=== PATIENT | female | born 1955 | race Caucasian/White ===

== ENCOUNTER → 2018-04-10 12:17 | Outpatient (CLI) | payer MEDICARE, SELFPAY ==
--- NOTE | 2018-04-10 | DI.MG.S_ITS ---
BILATERAL DIGITAL SCREENING MAMMOGRAM 3D/2D WITH CAD: 04/10/2018 CLINICAL: Routine screening. Comparison is made to exams dated: 03/15/2016 mammogram, 06/29/2014 mammogram, and 06/18/2014 mammogram - [facility]. There are scattered fibroglandular elements in both breasts. Current study was also evaluated with a Computer Aided Detection (CAD) system. No significant masses, calcifications, or other findings are seen in either breast. There has been no significant interval change. IMPRESSION: NEGATIVE There is no mammographic evidence of malignancy. A 1 year screening mammogram is recommended. This exam was interpreted at Station ID: [id number]. NOTE: For mammograms, a report in lay terms will be sent to the patient. Approximately 15% of breast malignancies will not be visualized mammographically. In the management of a palpable breast mass, a negative mammogram must not discourage biopsy of a clinically suspicious lesion. Electronically Signed By: Faith merritt/oliver:04/10/2018 17:30:34 letter sent: Normal Exam ACR BI-RADS Category 1: Negative [id number]
== END ==
PROVIDERS: Family Provider Nurse Practitioner Family; PCP Nurse Practitioner Family; Visit Provider Nurse Practitioner Family
DX: Z12.31 Encounter for screening mammogram for malignant neoplasm of breast (principal)
CPT/HCPCS: 77063; 77067

== ENCOUNTER → 2018-05-02 12:57 | Outpatient (CLI) | payer MEDICARE, SELFPAY ==
--- NOTE | 2018-05-02 | DI.US.S_ITS ---
PROCEDURE: US THYROID INDICATIONS: THYROID NODULE, MENOPAUSAL TECHNIQUE: Real-time scanning was performed of the thyroid gland, with image documentation. COMPARISON: Located Within [facility], US, THYROID, 08/09/2016, 11:24. FINDINGS: Right: Thyroid lobe measures 4.2 x 1.9 x 2.1 cm, and is homogeneous in echotexture. Left: Thyroid lobe measures 3.4 x 1.1 x 1.1 cm, and is homogenous in echotexture. Isthmus: 3.0 mm thick. Nodule number: 1 Location: Right mid Size: Unchange at 2.2 x 1.6 x 1.3 cm. Composition: Solid Echogenicity: Isoechoic Shape: wider than tall. Margins: Smooth Echogenic foci: Internal echogenic punctate foci Total points: 6 ACR TI-RADS category: Moderately suspicious Nodule number: 2 Location: Left superior Size: Unchange of 0.4 x 0.4 x 0.4 cm. Composition: Solid Echogenicity: Isoechoic Shape: wider than tall. Margins: Smooth Echogenic foci: None Total points: 3 ACR TI-RADS category: Mildly suspicious IMPRESSION: No significant interval change in appearance and size of moderately suspicious right thyroid nodule. By history, the nodule has been biopsied 3 different times with indeterminate results. If indicated, sonographically directed rebiopsy could be performed with pathology on site to evaluate the specimen at the time of biopsy. Otherwise continued followup as below. ACR TI-RADS definitions and recommendations: TI-RADS 1 (benign): 0 points. FNA not needed. TI-RADS 2 (not suspicious): 2 points. FNA not needed. TI-RADS 3 (mildly suspicious): 3 points. * FNA if 2.5 cm or larger, follow up if 1.5 cm or larger (at 1, 3, and 5 years). TI-RADS 4 (moderately suspicious): 4-6 points. * FNA if 1.5 cm or larger, follow up if 1 cm or larger (at 1, 2, 3, and 5 years). TI-RADS 5 (highly suspicious): 7 points or more. * FNA if 1 cm or larger, follow up if 0.5 cm or larger (every year for 5 years). Dictated by: Benton VALLES Interpreted: Sarai Corrigan MD on 05/02/2018 at 14:04 Approved by: Sarai Corrigan M.D. on 05/03/2018 at 9:46
== END ==
PROVIDERS: PCP Nurse Practitioner Family; Visit Provider Nurse Practitioner Family
DX: E04.2 Nontoxic multinodular goiter (principal); M81.0 Age-related osteoporosis without current pathological fracture; Z78.0 Asymptomatic menopausal state; Z90.722 Acquired absence of ovaries, bilateral; Z87.891 Personal history of nicotine dependence
CPT/HCPCS: 76536; 77080

== ENCOUNTER → 2018-05-13 12:50 | Outpatient (CLI) | payer MEDICARE, SELFPAY ==
--- NOTE | 2018-05-13 12:52 | DI.CT.S_ITS ---
PROCEDURE: CT SINUS SCREEN WO CON INDICATIONS: NIGHT SWEATS SINUSITIS TECHNIQUE: Noncontrast 3.0 mm axial images acquired from the frontal sinuses to the mid-sella, with coronal and sagittal reformats. For radiation dose reduction, the following was used: automated exposure control, adjustment of mA and/or kV according to patient size. COMPARISON: None. FINDINGS: Image quality: Excellent. Maxillary Sinuses: No bony remodeling or destruction. Mild right maxillary sinus because of thickening. There is moderate left maxillary sinus mucosal thickening. Ethmoid Air Cells: No bony remodeling or destruction. Mild mucosal thickening within the left anterior, and right posterior ethmoid air cells.. Sphenoid Sinuses: No bony remodeling or destruction. Moderate mucosal thickening within the right sphenoid sinus. Frontal Sinuses: No bony remodeling or destruction. Mild left frontal sinus because of thickening. Right frontal sinus is clear. Ostiomeatal Complexes: Right ostiomeatal unit is opacified. There is near-complete opacification of the left estimated lesion.. No Gómez cells. Miscellaneous: Visualized intra-orbital contents are normal. No hazel bullosa or paradoxical turbinate curvature. Moderate rightward nasal septal deviation. IMPRESSION: 1. Mckeon sinus mucosal disease. 2. Rightward nasal septum deviation. 3. Right greater than left ostiomeatal unit opacification. Dictated by: Makeda Salmeron M.D. on 05/13/2018 at 16:56 Approved by: Makeda Salmeron M.D. on 05/13/2018 at 16:58
--- NOTE | 2018-05-13 12:56 | DI.CT.S_ITS ---
PROCEDURE: CT CHEST WO CON INDICATIONS: NIGHT SWEATS SINUSITIS TECHNIQUE: Noncontrast 5 mm thick sections acquired from the pulmonary apices to the posterior costophrenic angles. 7 mm thick coronal and sagittal MIP reformats were then acquired. For radiation dose reduction, the following was used: automated exposure control, adjustment of mA and/or kV according to patient size. COMPARISON: [facility], , THYROID, 05/02/2018, 13:42. FINDINGS: Image quality: Excellent. Lungs and pleura: No acute consolidation. No pleural effusions or pneumothorax. Central and peripheral airways are patent and normal in caliber. Mediastinum: Heart size is normal. Trace pericardial effusion. No mediastinal adenopathy by size criteria. Thoracic aorta and central pulmonary arteries are normal in size. Esophagus is normal in caliber. No hiatal hernia. Bones and chest wall: No suspicious bony lesions. No vertebral body compression fractures. No axillary or supraclavicular adenopathy by size criteria. Thyroid gland contains a low-attenuation nodule measuring approximately 5 cm in the right lobe on image one, incompletely visualized and please see recent ultrasound report from 05/02/18 Abdomen: Visualized upper abdominal solid organs and bowel loops appear normal in the absence of contrast. IMPRESSION: Clear lungs. No mediastinal or hilar adenopathy. Trace pericardial effusion. Dictated by: Seymour Julien M.D. on 05/13/2018 at 17:48 Approved by: Seymour Julien M.D. on 05/13/2018 at 17:53
== END ==
PROVIDERS: PCP Nurse Practitioner Family; Visit Provider Internal Medicine Critical Care Medicine
DX: J32.4 Chronic pansinusitis (principal); J34.2 Deviated nasal septum
CPT/HCPCS: 70486; 71250

== ENCOUNTER → 2019-03-06 11:32 | Outpatient (CLI) | payer OTHER, SELFPAY ==
--- NOTE | 2019-03-06 | DI.RAD.S_ITS ---
PROCEDURE: XR CHEST 2V INDICATIONS: CHEST XR/ DYSPNEA TECHNIQUE: 2 views of the chest were acquired. [facility] 10[facility]17[facility], 06/05/2016, 9:06. FINDINGS: Surgical changes and devices: None. Lungs and pleura: Lungs are clear. No pleural effusions or pneumothorax. Mediastinum: Mediastinal contours are normal. Heart size is normal. Bones and chest wall: No suspicious bony abnormalities. Soft tissues appear unremarkable. IMPRESSION: Large lung volumes, flattening of the diaphragms on the lateral view, suspect COPD versus aggressive inspiratory effort. Dictated by: Lucio Burks M.D. on 03/06/2019 at 14:10 Approved by: Lucio Burks M.D. on 03/06/2019 at 14:10
== END ==
PROVIDERS: Family Provider Internal Medicine Critical Care Medicine; PCP Nurse Practitioner Family; Visit Provider Internal Medicine Critical Care Medicine
DX: R06.00 Dyspnea, unspecified (principal)
CPT/HCPCS: 71046

== ENCOUNTER → 2020-04-09 08:36 | Outpatient (CLI) | payer OTHER, SELFPAY ==
--- NOTE | 2020-04-09 | DI.MG.S_ITS ---
BILATERAL DIGITAL SCREENING MAMMOGRAM 3D/2D WITH CAD: 04/09/2020 CLINICAL: Routine screening. Comparison is made to exams dated: 04/10/2018 mammogram, 03/15/2016 mammogram, and 06/18/2014 mammogram - [facility]. There are scattered fibroglandular elements in both breasts. Current study was also evaluated with a Computer Aided Detection (CAD) system. There is a benign calcification in the right breast. There is a mole marker on the left breast. No significant masses, calcifications, or other findings are seen in either breast. There has been no significant interval change. IMPRESSION: BENIGN There is no mammographic evidence of malignancy. A 1 year screening mammogram is recommended. This exam was interpreted at Station ID: [id number]. NOTE: For mammograms, a report in lay terms will be sent to the patient. Approximately 15% of breast malignancies will not be visualized mammographically. In the management of a palpable breast mass, a negative mammogram must not discourage biopsy of a clinically suspicious lesion. Electronically Signed By: Tarik hill/oliver:04/10/2020 18:01:18 letter sent: Normal Exam ACR BI-RADS Category 2: Benign Finding(s) 3342F
== END ==
PROVIDERS: Family Provider Internal Medicine Critical Care Medicine; PCP Internal Medicine; Referring Provider Internal Medicine; Visit Provider Internal Medicine
DX: Z12.31 Encounter for screening mammogram for malignant neoplasm of breast (principal)
CPT/HCPCS: 77063; 77067

== ENCOUNTER → 2020-05-09 13:33 | Outpatient (CLI) | payer OTHER, SELFPAY | PROVIDERS: Family Provider Internal Medicine Critical Care Medicine; PCP Internal Medicine; Referring Provider Internal Medicine; Visit Provider Internal Medicine | DX: M81.0 Age-related osteoporosis without current pathological fracture (principal); Z78.0 Asymptomatic menopausal state; Z90.722 Acquired absence of ovaries, bilateral; Z87.891 Personal history of nicotine dependence | CPT/HCPCS: 77080 ==

== ENCOUNTER 2020-05-19 23:13 | Emergency (ER) | payer OTHER, SELFPAY ==
[2020-05-19 23:15] VITALS: BP 187/104; PULSE 102; RESP 25; TEMP 37; O2SAT 98
[2020-05-19 23:17] VITALS: BP 187/104; PULSE 106; O2SAT 96
--- NOTE | 2020-05-19 23:18 | ED_ITS ---
HPI - General Adult General Chief complaint: Shortness of Breath/Dyspnea Stated complaint: SOB Time Seen by Provider: 05/19/20 23:15 Source: patient and EMS Mode of arrival: EMS Limitations: no limitations History of Present Illness HPI narrative: Patient is a 65-year-old female. History of asthma and COPD who states that for the past couple days she has had some increasing shortness of breath. Has been using her albuterol inhaler and her nebulizer at home. Earlier this evening her symptoms worsened and her nebulizer treatment did not seem to be helping so she called EMS. Patient received no nebulizers by EMS in route secondary to the COVID-19 pandemic. Related Data Home Medications Medication Instructions Recorded Confirmed budesonide #0 07/30/17 Previous Rx's Medication Instructions Recorded ipratropium-albuterol 3 ml INHALATION Q20M PRN #90 ml 05/20/20 Allergies Allergy/AdvReac Type Severity Reaction Status Date / Time doxycycline Allergy Verified 05/19/20 23:23 Review of Systems Constitutional Constitutional: Denies fever(s) and Denies headache(s) ENT Ears, Nose, Mouth, and Throat: Denies headache(s) Cardiovascular Cardiovascular: Denies chest pain and Reports dyspnea Respiratory Respiratory: Reports cough and Reports dyspnea Gastrointestinal Gastrointestinal: Denies abdominal pain, Denies nausea and Denies vomiting Genitourinary Genitourinary: Denies dysuria Genitourinary: Denies dysuria Musculoskeletal Musculoskeletal: Denies arthralgias and Denies myalgias Integumentary/Breasts Skin/Breast: Denies rash Neurologic Neurologic: Denies behavioral changes and Denies headache(s) Psychiatric Psychiatric: Denies behavioral changes Hematologic/Lymphatic Hematologic/Lymphatic: Denies easy bleeding and Denies easy bruising Allergic/Immunologic Allergic/Immunologic: Denies urticaria Patient History Medical History Asthma COPD (chronic obstructive pulmonary disease) Social History Smoking Status: Former smoker Exam Initial Vital Signs Initial Vital Signs: Vital Signs Temperature 98.6 F 05/19/20 23:15 Pulse Rate 102 H 05/19/20 23:15 Respiratory Rate 25 H 05/19/20 23:15 Blood Pressure 187/104 H 05/19/20 23:15 Pulse Oximetry 98 05/19/20 23:15 Const General: ill appearing Limitations: mental status not altered HENMD Head: normal to inspection and normocephalic Resp Effort & Inspection: audible wheezes, cough, labored, nasal flaring and tac hypneic Auscultation: rhonchi and wheezes Cardio Rate: tachycardic Skin Lesions: no lesions Rashes: no rashes Neuro General: patient alert and patient awake Cognition: normal cognition Extrem General: capillary refill normal Psych Appearance: grossly normal and well kempt Course Orders Ordered: ED Orders 05/19/20 23:10 Complete Blood Count AUTO DIFF Stat Lipase Stat NT-proBNP (BNP-Adult 18+) Stat Troponin & CK Cardiac Panel Stat 05/19/20 23:15 COVID19 Stat EKG-12 Lead Stat RT Consult Eval and Treat Now 05/19/20 23:26 XR chest 1V Stat 05/20/20 00:13 Basic Metabolic Panel Stat Discontinued Medications Albuterol (Albuterol Hfa Mdi 60 Puff/8 Gm Inhaler) 4 puff INH NOW ONE Stop: 05/19/20 23:18 Last Admin: 05/19/20 23:24 Dose: 4 puff Documented by: DARION Albuterol/Ipratropium (Albuterol/Ipratropium 3 Ml Ampul) 3 ml INH NOW ONE Stop: 05/19/20 23:50 Last Admin: 05/19/20 23:59 Dose: 3 ml Documented by: DARION Albuterol/Ipratropium (Albuterol/Ipratropium 3 Ml Ampul) 3 ml INH NOW ONE Stop: 05/20/20 00:19 Last Admin: 05/20/20 00:22 Dose: 3 ml Documented by: DARION Methylprednisolone (Methylprednisolone 125 Mg/2 Ml Vial) 125 mg IV NOW ONE Stop: 05/19/20 23:18 Last Admin: 05/19/20 23:22 Dose: 125 mg Documented by: GILBERT Prednisone (Prednisone 20 Mg Prepack) 1 bottle MISC SEEINSTR ONE Stop: 05/20/20 01:38 Last Admin: 05/20/20 01:44 Dose: 1 bottle Documented by: GILBERT Vital Signs Vital signs: Vital Signs - 8 hr 05/19/20 23:15 05/19/20 23:17 05/19/20 23:24 Temperature 98.6 F Pulse Rate 102 H 106 H 100 H Respiratory Rate 25 H 28 H Blood Pressure 187/104 H 187/104 H Pulse Oximetry 98 96 97 05/19/20 23:30 05/19/20 23:59 05/20/20 00:00 Temperature Pulse Rate 102 H 105 H 97 H Respiratory Rate 22 18 Blood Pressure Pulse Oximetry 98 98 96 05/20/20 00:23 05/20/20 00:30 05/20/20 00:48 Temperature Pulse Rate 98 H 101 H 103 H Respiratory Rate 18 25 H 17 Blood Pressure Pulse Oximetry 96 94 94 05/20/20 00:49 Temperature Pulse Rate Respiratory Rate Blood Pressure 135/75 Pulse Oximetry Medical Decision Making Lab Data Lab results reviewed: Yes I reviewed the patient's lab results. Result diagrams: 05/19/20 23:10 05/19/20 23:10 Labs: Lab Results 05/19/20 05/19/20 05/19/20 Range/Units 23:10 23:10 23:10 WBC 15.4 H (4.5-11.0) X10^3/uL RBC 5.17 (4.0-5.2) X10^6/uL Hgb 16.0 (12.0-16.0) g/dL Hct 48.0 H (36-46) % MCV 92.8 (80-100) fL MCH 30.9 (26-34) PG MCHC 33.3 (30-36) % RDW 12.6 (11.6-14.8) % Plt Count 283 (150-400) X10^3/uL Neut % (Auto) 67.9 (50-75) % Lymph % (Auto) 22.8 L (25-40) % [place] % (Auto) 6.0 (3-14) % Eos % (Auto) 2.7 (2-4) % Baso % (Auto) 0.6 (0-2) % Neut # (Auto) 01145 H (6645-5331) /uL Lymph # (Auto) 3500 (8593-6241) /uL [place] # (Auto) 900 (0-900) /uL Eos # (Auto) 400 (0-450) /uL Baso # (Auto) 100 (0-100) /uL Sodium 139 (137-145) mmol/L Potassium 3.9 (3.4-5.1) mmol/L Chloride 102 (98-107) mmol/L Carbon Dioxide 30 (22-32) mmol/L BUN 16 (7-17) mg/dL Creatinine 0.76 (0.52-1.04) mg/dL Estimated GFR > 60.0 (>60) mL/min BUN/Creatinine Ratio 21.1 (6-22) Glucose 122 H (80-110) mg/dL Calcium 10.1 (8.4-10.2) mg/dL Total Creatine Kinase 121 (30-135) U/L CK-MB (CK-2) 1.06 (<2.37) ng/mL CK-MB (CK-2) Rel Index 0.9 L (1.5-5.0) % Troponin I < 0.012 (0.01-0.034) ng/mL NT-Pro-B Natriuret Pep 88 (<125) pg/mL Lipase 66 (23-300) U/L COVID-19 PCR (Negative) 05/19/20 Range/Units 23:15 WBC (4.5-11.0) X10^3/uL RBC (4.0-5.2) X10^6/uL Hgb (12.0-16.0) g/dL Hct (36-46) % MCV (80-100) fL MCH (26-34) PG MCHC (30-36) % RDW (11.6-14.8) % Plt Count (150-400) X10^3/uL Neut % (Auto) (50-75) % Lymph % (Auto) (25-40) % [place] % (Auto) (3-14) % Eos % (Auto) (2-4) % Baso % (Auto) (0-2) % Neut # (Auto) (4074-4247) /uL Lymph # (Auto) (2844-2394) /uL [place] # (Auto) (0-900) /uL Eos # (Auto) (0-450) /uL Baso # (Auto) (0-100) /uL Sodium (137-145) mmol/L Potassium (3.4-5.1) mmol/L Chloride (98-107) mmol/L Carbon Dioxide (22-32) mmol/L BUN (7-17) mg/dL Creatinine (0.52-1.04) mg/dL Estimated GFR (>60) mL/min BUN/Creatinine Ratio (6-22) Glucose (80-110) mg/dL Calcium (8.4-10.2) mg/dL Total Creatine Kinase (30-135) U/L CK-MB (CK-2) (<2.37) ng/mL CK-MB (CK-2) Rel Index (1.5-5.0) % Troponin I (0.01-0.034) ng/mL NT-Pro-B Natriuret Pep (<125) pg/mL Lipase (23-300) U/L COVID-19 PCR Negative (Negative) Imaging Data Chest x-ray: Radiologist's Impression: Normal heart and lungs ECG Data Attestation: I personally reviewed and interpreted this ECG as follows: Prior ECG tracings: not available for review Interpretation: Sinus tachycardia Ventricular rate of 104 Normal axis Normal QRS Normal QTC No ST T wave changes MDM Narrative Medical decision making narrative: Patient has a history of COPD and asthma. Has home nebulizers that were not working for her. She is afebrile. Her chest x-ray is unremarkable. Receives albuterol and multiple Duo nebulizers and steroids here in the ER. Afterwards she reported a vast improvement of her symptoms. No chest pain. Low suspicion for ACS. Does have leukocytosis however I suspect this is demargination. No indication for antibiotics. A COVID-19 is negative. Upon discharge patient still had wheezing bilateral but she reports an improvement her symptoms the point that she would like to be discharged home. She ambulated around the ER with her oxygen saturations greater than 92%. Patient states she feels well enough to be discharged home. She is given a prepack for steroids. She expressed understanding and agreement. Discharge Plan Departure Patient Disposition: Home Clinical Impression: Asthma with exacerbation, COPD exacerbation Instructions: Chronic Obstructive Pulmonary Disease, Asthma -- Adult Activity Restrictions/Additional Instructions: Start taking the prednisone that you given a prepack today as directed. Start taking that on 05/20/20. Use your inhaler at home as needed. Contact your primary provider for follow-up. Return to the emergency department for any new or worsening symptoms Prescriptions: New ipratropium-albuterol 0.5 mg-3 mg(2.5 mg base)/3 mL solution for nebulization 3 ml inhalation Q20M PRN (Reason: wheezing) Qty: 90 RF: 0 No Action budesonide 0.5 MG/2 ML suspension for nebulization Qty: 0 RF: 0 Referrals: Kaylee Bentley ARNP [Primary Care Provider] -
[2020-05-19] MEDS: methylPREDNISolone 125 MG/2 ML VIAL IV (23:22)
[2020-05-19 23:24] VITALS: PULSE 100; RESP 28; O2SAT 97
[2020-05-19] MEDS: ALBUTEROL HFA MDI 60 PUFF/8 GM INHALER INH (23:24)
--- NOTE | 2020-05-19 23:26 | DI.RAD.S_ITS ---
PROCEDURE: XR CHEST 1V INDICATIONS: Shortness of breath TECHNIQUE: One view of the chest was acquired. COMPARISON: Outside Facility, RG, CT ANGIO CHEST, 07/20/2016, 11:07. [facility], CR, CHEST 2 VIEW, 07/19/2016, 10:17. [facility], CR, CHEST 2 VIEW, 06/05/2016, 9:06. [facility], CT, CT CHEST WO CON, 05/13/2018, 12:53. [facility], CR, XR CHEST 2V, 03/06/2019, 11:39. FINDINGS: Surgical changes and devices: None. Lungs and pleura: Lungs are clear, yet hyperexpanded. No pleural effusions or pneumothorax. Mediastinum: The cardiac contours are within normal limits. The aorta demonstrates calcification and tortuosity. Bones and chest wall: Age-appropriate bony degenerative changes are seen. Remote left posterolateral rib fractures can be seen. No suspicious bony lesions. Overlying soft tissues appear unremarkable. IMPRESSION: Hyperexpanded lungs, without an acute cardiopulmonary process identified. Note: No significant discrepancy from the preliminary report. Dictated by: Jovany Mccann M.D. on 05/20/2020 at 6:14 Approved by: Jovany Mccann M.D. on 05/20/2020 at 6:16
[2020-05-19 23:30] VITALS: PULSE 102; O2SAT 98
[2020-05-19 23:31] LABS: Add Manual Diff / Slide Review NO; Basophils Absolute Auto 100 /uL (0-100); Basophils Percent Auto 0.6 % (0-2); Eosinophils Absolute Auto 400 /uL (0-450); Eosinophils Percent Auto 2.7 % (2-4); Lymphocytes Absolute Auto 3500 /uL (1100-4500); Lymphocytes Percent Auto 22.8 % (25-40); Mean Corpuscular HGB Conc 33.3 % (30-36); Mean Corpuscular Hemoglobin 30.9 PG (26-34); Mean Corpuscular Volume 92.8 fL (80-100); Monocytes Absolute Auto 900 /uL (0-900); Neutrophils Absolute Auto 10400 /uL (1500-7000); Neutrophils Percent Auto 67.9 % (50-75); Platelet Count 283 X10^3/uL (150-400); Red Blood Cell Count 5.17 X10^6/uL (4.0-5.2); Red Cell Distribution Width 12.6 % (11.6-14.8); White Blood Cell Count 15.4 X10^3/uL (4.5-11.0)
[2020-05-19 23:34] LABS: Creatine Kinase 121 U/L (30-135); Lipase 66 U/L (23-300)
[2020-05-19 23:43] LABS: COVID19 -Nasal RAPID Negative (Negative)
[2020-05-19 23:47] LABS: NT-proBNP (BNP-Adult 18+) 88 pg/mL (<125); Troponin I < 0.012 ng/mL (0.01-0.034)
[2020-05-19 23:49] LABS: CKMB % Relative Index 0.9 % (1.5-5.0); Creatine Kinase MB 1.06 ng/mL (<2.37)
[2020-05-19 23:59] VITALS: PULSE 105; RESP 22; O2SAT 98
[2020-05-19] MEDS: ALBUTEROL/IPRATROPIUM 3 ML AMPUL INH (23:59)
[2020-05-20] VITALS: PULSE 97; RESP 18; O2SAT 96
[2020-05-20] MEDS: ALBUTEROL/IPRATROPIUM 3 ML AMPUL INH (00:22)
[2020-05-20 00:23] VITALS: PULSE 98; RESP 18; O2SAT 96
[2020-05-20 00:30] VITALS: PULSE 101; RESP 25; O2SAT 94
[2020-05-20 00:31] LABS: BUN Creatinine Ratio 21.1 (6-22); Blood Urea Nitrogen 16 mg/dL (7-17); Calcium 10.1 mg/dL (8.4-10.2); Carbon Dioxide 30 mmol/L (22-32); Chloride 102 mmol/L (98-107); Estimated Glomerular Filt Rate > 60.0 mL/min (>60); Glucose 122 mg/dL (80-110); HEMOLYSIS < 15 (0-50); Potassium 3.9 mmol/L (3.4-5.1); Sodium 139 mmol/L (137-145)
[2020-05-20 00:48] VITALS: PULSE 103; RESP 17; O2SAT 94
[2020-05-20 00:49] VITALS: BP 135/75
[2020-05-20] MEDS: predniSONE 20 MG PREPACK 1 BOTTLE MISC (01:44)
== END 2020-05-20 01:50 | disposition home or self-care (01) ==
PROVIDERS: Emergency Provider Emergency Medicine; Family Provider Internal Medicine Critical Care Medicine; PCP Internal Medicine
DX: J44.1 Chronic obstructive pulmonary disease with (acute) exacerbation (principal); J45.901 Unspecified asthma with (acute) exacerbation; R05 Cough; R06.00 Dyspnea, unspecified; R00.0 Tachycardia, unspecified; Z20.828 Contact with and (suspected) exposure to other viral communicable diseases
CPT/HCPCS: 71045; 80048; 82550; 82553; 83690; 83880; 84484; 85025; 87635; 93005; 94640; 96374; 99284; 99285; A9270; J2930

== ENCOUNTER → 2020-08-08 13:14 | Outpatient (CLI) | payer MEDICARE, SELFPAY ==
[2020-08-08] MEDS: COVID-19 VACC, Ad26(JANSSEN)/PF 0.5 ML IM (13:23)
== END ==
PROVIDERS: Family Provider Internal Medicine Critical Care Medicine; PCP Internal Medicine; Visit Provider Internal Medicine
DX: Z23 Encounter for immunization (principal)
CPT/HCPCS: 0031A; 91303

== ENCOUNTER 2020-09-27 18:48 | Emergency (ER) | payer OTHER, SELFPAY ==
[2020-09-27] VITALS (12 sets, daily range): BP systolic 126–169; BP diastolic 61–100; PULSE 104–136; RESP 18–37; TEMP 36.8; O2SAT 92–97; BMI 30.2
--- NOTE | 2020-09-27 18:53 | DI.RAD.S_ITS ---
PROCEDURE: XR CHEST 1V INDICATIONS: SOB TECHNIQUE: One view of the chest was acquired. COMPARISON: [facility], CR, XR CHEST 1V, 05/19/2020, 23:27. FINDINGS: Surgical changes and devices: None. Lungs and pleura: Lungs are clear. No pleural effusions or pneumothorax. Mediastinum: Mediastinal contours appear normal. Heart size is normal. Bones and chest wall: No suspicious bony lesions. Overlying soft tissues appear unremarkable. IMPRESSION: No acute cardiopulmonary pathology. Dictated by: Kenneth Rhoades M.D. on 09/27/2020 at 20:05 Approved by: Kenneth Rhoades M.D. on 09/27/2020 at 20:10
--- NOTE | 2020-09-27 18:55 | ED.SOB ---
HPI - SOB/Dyspnea General Chief Complaint: Shortness of Breath/Dyspnea Stated Complaint: SOB x1 month Time Seen by Provider: 09/27/20 18:50 Source: patient and EMS Mode of arrival: EMS Limitations: no limitations History of Present Illness HPI Narrative: 65-year-old female former smoker with history of COPD presents by EMS with chief complaint of 1 month of increasing shortness of breath. She is profoundly worse over the past day or 2. Minimal exertion causes increased shortness of breath. She has had subjective fever and chills as well as some cough with occasional sputum. She has been recently seen by her primary care provider and had been on antibiotics but is not getting any better. She has been on oral steroids and her inhalers at home with minimal relief. She is not dizzy nor weak or lightheaded. She denies runny nose or sore throat. She has no chest pain, abdominal pain, nausea, vomiting or diarrhea. MD Complaint: shortness of breath and cough Onset (ago): week(s) Severity: severe Consistency/Duration: constant Relieving factors: nothing Exacerbating factors: exertion Known history of: COPD Associated symptoms: denies other symptoms Treatment prior to arrival: bronchodilator Related Data Home oxygen amount: none Home Medications Medication Instructions Recorded Confirmed budesonide #0 07/30/17 Previous Rx's Medication Instructions Recorded ipratropium-albuterol 3 ml INHALATION Q20M PRN #90 ml 05/20/20 prednisone See Rx Instructions .ROUTE 09/27/20 .COMPLEX #30 tab Allergies Allergy/AdvReac Type Severity Reaction Status Date / Time doxycycline Allergy Verified 09/27/20 19:12 Review of Systems Constitutional Constitutional: Reports chills, Reports fatigue, Reports fever(s), Denies frequent falls, Denies lethargy and Reports weakness Eyes Eyes: Denies change in vision, Denies eye discharge, Denies irritation and Denies loss of vision ENT Ears, Nose, Mouth, and Throat: Denies change in voice, Denies dizziness, Denies neck pain, Denies sore throat and Denies throat swelling Cardiovascular Cardiovascular: Denies chest pain, Denies irregular heart rhythm, Denies lightheadedness, Denies palpitations, Reports dyspnea, Denies dyspnea on exertion and Denies orthopnea Respiratory Respiratory: Reports cough, Reports dyspnea, Denies dyspnea on exertion and Reports wheezing Gastrointestinal Gastrointestinal: Denies abdominal pain, Denies change in bowel habits, Denies diarrhea, Denies nausea and Denies vomiting Musculoskeletal Musculoskeletal: Denies neck pain and Denies numbness Integumentary/Breasts Skin/Breast: Denies pruritus, Denies erythema, Denies rash and Denies wounds Neurologic Neurologic: Denies behavioral changes, Denies confusion, Denies dizziness, Denies frequent falls, Denies loss of vision, Denies numbness and Reports weakness Psychiatric Psychiatric: Denies anxiety, Denies behavioral changes, Denies confusion, Denies depression, Denies homicidal ideation and Denies suicidal ideation Endocrine Endocrine: Reports fatigue, Denies flushing and Denies palpitations Hematologic/Lymphatic Hematologic/Lymphatic: Denies easy bruising Allergic/Immunologic Allergic/Immunologic: Denies urticaria, Denies throat swelling and Reports wheezing Patient History Medical History Asthma COPD (chronic obstructive pulmonary disease) Social History Smoking Status: Former smoker Smoking Status: Former smoker alcohol intake frequency: a few times a week Substance Use Type: does not use Exam Narrative Exam Narrative: GENERAL: [65] year old patient appears stated age. Well-nourished, well-developed patient, in significant distress. Noted work of breathing, sitting for, using accessory muscles HEAD: Atraumatic. Normocephalic. EYES: Pupils equal round and reactive. Extraocular motions intact. No scleral icterus. No injection or drainage. ENT: Nose without bleeding, purulent drainage. Throat without erythema, tonsillar hypertrophy or exudate. Airway patent. NECK: Trachea midline. Non tender CARDIOVASCULAR: Regular rate and rhythm without murmurs, gallops, or rubs. RESPIRATORY: Decreased breath sounds bilaterally prolonged expiratory phase wheezes in bilateral apices GASTROINTESTINAL: Abdomen soft, non-tender, nondistended. EXTREMITIES: No edema or joint tenderness. BACK: Nontender without deformity or crepitance. No flank tenderness. NEURO: AOx3. SKIN: No rash or erythema of visible areas Initial Vital Signs Initial Vital Signs: Vital Signs Pulse Rate 127 H 09/27/20 18:53 Respiratory Rate 37 H 09/27/20 18:53 Pulse Oximetry 94 09/27/20 18:53 Course Course Course Narrative: Patient does demonstrate a significant improvement after the above-stated therapies. Though she is not 100% she feels much better and is resting comfortably. She is given an ambulation trial and makes it to the bathroom and back without any dip in her pulse ox or significant worsening of respiratory distress. Her chest x-ray is clear and labs are very reassuring. Her ABG demonstrates no hypoxemia. We discussed at length whether not she would be most appropriate for hospitalization and sure the pain in that a trial at home with an extended prednisone taper is reasonable. We talked about return precautions and her questions have been answered to her apparent satisfaction Orders Ordered: Discontinued Medications Albuterol (Albuterol 2.5 Mg/3 Ml Neb (Adult)) 10 mg INH NOW ONE Stop: 09/27/20 19:52 Last Admin: 09/27/20 19:55 Dose: 10 mg Documented by: DARION Albuterol/Ipratropium (Albuterol/Ipratropium 3 Ml Ampul) 3 ml INH NOW ONE Stop: 09/27/20 18:54 Last Admin: 09/27/20 19:50 Dose: 3 ml Documented by: DARION Sodium Chloride (Normal Saline 0.9%) 1,000 mls @ 125 mls/hr IV CONT HUYEN Last Infusion: 09/27/20 21:43 Dose: 0 mls/hr Documented by: Admin: 09/27/20 19:03 Dose: 125 mls/hr Documented by: PEE Magnesium Sulfate (Magnesium Sulfate) 2 gm in 50 mls @ 150 mls/hr IV NOW ONE Stop: 09/27/20 19:12 Last Infusion: 09/27/20 19:37 Dose: 0 mls/hr Documented by: CORTES Cosigned by: NELLY Admin: 09/27/20 19:02 Dose: 150 mls/hr Documented by: PEE Cosigned by: FRANCINE Methylprednisolone (Methylprednisolone 125 Mg/2 Ml Vial) 125 mg IV NOW ONE Stop: 09/27/20 18:54 Last Admin: 09/27/20 19:02 Dose: 125 mg Documented by: PEE MDM - SOB/Dyspnea Lab Data Result diagrams: 09/27/20 18:50 09/27/20 18:50 Labs: Lab Results 09/27/20 09/27/20 09/27/20 Range/Units 18:10 18:50 18:50 WBC 13.4 H (4.5-11.0) X10^3/uL RBC 5.26 H (4.0-5.2) X10^6/uL Hgb 15.9 (12.0-16.0) g/dL Hct 49.0 H (36-46) % MCV 93.2 (80-100) fL MCH 30.2 (26-34) PG MCHC 32.5 (30-36) % RDW 12.7 (11.6-14.8) % Plt Count 291 (150-400) X10^3/uL Neut % (Auto) 58.6 (50-75) % Lymph % (Auto) 31.9 (25-40) % [place] % (Auto) 5.8 (3-14) % Eos % (Auto) 3.0 (2-4) % Baso % (Auto) 0.7 (0-2) % Neut # (Auto) 7800 H (7741-8451) /uL Lymph # (Auto) 4300 (1161-4377) /uL [place] # (Auto) 800 (0-900) /uL Eos # (Auto) 400 (0-450) /uL Baso # (Auto) 100 (0-100) /uL D-Dimer (<230) ng/mL ABG pH (7.35-7.45) ABG pCO2 (35-45) mmHg ABG pO2 (80-100) mmHg ABG HCO3 (22-26) mmol/L ABG Total CO2 (21-31) mmol/L ABG O2 Saturation (95-100) % ABG Base Excess (-2-2) mmol/L FiO2 Sodium 139 (137-145) mmol/L Potassium 4.2 (3.4-5.1) mmol/L Chloride 103 (98-107) mmol/L Carbon Dioxide 26 (22-32) mmol/L BUN 22 H (7-17) mg/dL Creatinine 0.81 (0.52-1.04) mg/dL Estimated GFR > 60.0 (>60) mL/min BUN/Creatinine Ratio 27.2 H (6-22) Glucose 124 H (80-110) mg/dL Lactate (0.7-2.1) mmol/L Calcium 10.5 H (8.4-10.2) mg/dL Magnesium 1.9 (1.6-2.3) mg/dL Total Bilirubin 0.5 (0.2-1.3) mg/dL AST 34 (14-36) IU/L ALT 31 (<35) IU/L Alkaline Phosphatase 125 (38-126) U/L Total Creatine Kinase 52 (30-135) U/L CK-MB (CK-2) TNP CK-MB (CK-2) Rel Index TNP Troponin I < 0.012 (0.01-0.034) ng/mL C-Reactive Protein 0.9 (<1.0) mg/dL NT-Pro-B Natriuret Pep 79 (<125) pg/mL Total Protein 8.1 (6.3-8.2) g/dL Albumin 4.7 (3.5-5.0) g/dL Globulin 3.4 (1.7-4.1) g/dL Albumin/Globulin Ratio 1.4 (1.0-2.8) SARS-CoV-2 (PCR) Negative (Negative) 09/27/20 09/27/20 09/27/20 Range/Units 18:50 18:50 19:12 WBC (4.5-11.0) X10^3/uL RBC (4.0-5.2) X10^6/uL Hgb (12.0-16.0) g/dL Hct (36-46) % MCV (80-100) fL MCH (26-34) PG MCHC (30-36) % RDW (11.6-14.8) % Plt Count (150-400) X10^3/uL Neut % (Auto) (50-75) % Lymph % (Auto) (25-40) % [place] % (Auto) (3-14) % Eos % (Auto) (2-4) % Baso % (Auto) (0-2) % Neut # (Auto) (9159-1849) /uL Lymph # (Auto) (3715-2022) /uL [place] # (Auto) (0-900) /uL Eos # (Auto) (0-450) /uL Baso # (Auto) (0-100) /uL D-Dimer < 200 (<230) ng/mL ABG pH 7.41 (7.35-7.45) ABG pCO2 39.6 (35-45) mmHg ABG pO2 104 H (80-100) mmHg ABG HCO3 25 (22-26) mmol/L ABG Total CO2 27 (21-31) mmol/L ABG O2 Saturation 98 (95-100) % ABG Base Excess 1.0 (-2-2) mmol/L FiO2 28 Sodium (137-145) mmol/L Potassium (3.4-5.1) mmol/L Chloride (98-107) mmol/L Carbon Dioxide (22-32) mmol/L BUN (7-17) mg/dL Creatinine (0.52-1.04) mg/dL Estimated GFR (>60) mL/min BUN/Creatinine Ratio (6-22) Glucose (80-110) mg/dL Lactate 1.7 (0.7-2.1) mmol/L Calcium (8.4-10.2) mg/dL Magnesium (1.6-2.3) mg/dL Total Bilirubin (0.2-1.3) mg/dL AST (14-36) IU/L ALT (<35) IU/L Alkaline Phosphatase (38-126) U/L Total Creatine Kinase (30-135) U/L CK-MB (CK-2) CK-MB (CK-2) Rel Index Troponin I (0.01-0.034) ng/mL C-Reactive Protein (<1.0) mg/dL NT-Pro-B Natriuret Pep (<125) pg/mL Total Protein (6.3-8.2) g/dL Albumin (3.5-5.0) g/dL Globulin (1.7-4.1) g/dL Albumin/Globulin Ratio (1.0-2.8) SARS-CoV-2 (PCR) (Negative) Urine Dip Bedside Urine Glucose Negative Bedside Urine Bilirubin - Negative Bedside Urine Ketone - Negative Urine Specific [place] 1.015 Bedside Urine Occult Blood - Negative Bedside Urine pH 6.0 Bedside Urine Protein - Negative Bedside Urine Urobilinogen - Negative Bedside Urine Nitrite - Negative Bedside Urine Leukocytes - Negative Esterase Discharge Plan Departure Patient Disposition: Home Clinical Impression: Acute exacerbation of chronic obstructive airways disease Instructions: Chronic Obstructive Pulmonary Disease Activity Restrictions/Additional Instructions: *You have been diagnosed with [acute exacerbation of COPD. Your lab work, EKG, imaging and other studies are very reassuring. There is no evidence of heart attack, blood clot, pneumonia] *What to do: *Please continue to take your regular medications as directed. [x ] New medication prescriptions sent to your pharmacy: [[facility] ] [ ] New medication written as a paper prescription [ ] No new medications given *Please follow up with your primary care provider in 2-3 days, call for an appointment. Let them know you were seen in the Emergency Department and that we ask that you be seen in follow up. We will electronically transmit a record of today's note if your PCP is in our system *If you do not have a primary care provider please contact the [facility] Resource line at [phone]. They will ask some questions about your medical history and help get you set up with a doctor in the community. *Return to Emergency Department if you should have any new, worsening or concerning symptoms, such as [fever greater than 101 F, shaking chills, worsening pain, persistent vomiting or other bothersome symptoms] Prescriptions: New prednisone 10 mg tablet See Rx Instructions .ROUTE .COMPLEX Qty: 30 RF: 0 No Action budesonide 0.5 MG/2 ML suspension for nebulization Qty: 0 RF: 0 ipratropium-albuterol 0.5 mg-3 mg(2.5 mg base)/3 mL solution for nebulization 3 ml inhalation Q20M PRN (Reason: wheezing) Qty: 90 RF: 0 Referrals: Kaylee Bentley ARNP [Primary Care Provider] -
[2020-09-27] MEDS: methylPREDNISolone 125 MG/2 ML VIAL IV (19:02)
[2020-09-27] MEDS: MAGNESIUM SULFATE 2 GM/50 ML PIGGYBACK IV (19:02)
[2020-09-27] MEDS: SODIUM CHLORIDE 0.9% 1,000 ML 125 ML IV (19:03)
[2020-09-27 19:10] LABS: Add Manual Diff / Slide Review NO; Basophils Absolute Auto 100 /uL (0-100); Basophils Percent Auto 0.7 % (0-2); Eosinophils Absolute Auto 400 /uL (0-450); Hemoglobin 15.9 g/dL (12.0-16.0); Lymphocytes Absolute Auto 4300 /uL (1100-4500); Lymphocytes Percent Auto 31.9 % (25-40); Mean Corpuscular HGB Conc 32.5 % (30-36); Mean Corpuscular Hemoglobin 30.2 PG (26-34); Mean Corpuscular Volume 93.2 fL (80-100); Monocytes Absolute Auto 800 /uL (0-900); Monocytes Percent Auto 5.8 % (3-14); Neutrophils Absolute Auto 7800 /uL (1500-7000); Neutrophils Percent Auto 58.6 % (50-75); Platelet Count 291 X10^3/uL (150-400); Red Blood Cell Count 5.26 X10^6/uL (4.0-5.2); Red Cell Distribution Width 12.7 % (11.6-14.8); White Blood Cell Count 13.4 X10^3/uL (4.5-11.0)
[2020-09-27 19:17] LABS: Fractionated Inspired Oxygen 28; HCO3 ABG 25 mmol/L (22-26); Oxygen Saturation ABG 98 % (95-100); PCO2 ABG 39.6 mmHg (35-45); PO2 ABG 104 mmHg (80-100); TCO2 ABG 27 mmol/L (21-31); pH ABG 7.41 (7.35-7.45)
[2020-09-27 19:28] LABS: Lactate (Lactic Acid) 1.7 mmol/L (0.7-2.1)
[2020-09-27 19:29] LABS: Alanine Aminotransferase 31 IU/L (<35); Albumin 4.7 g/dL (3.5-5.0); Albumin Globulin Ratio 1.4 (1.0-2.8); Alkaline Phosphatase 125 U/L (38-126); Aspartate Aminotransferase 34 IU/L (14-36); BUN Creatinine Ratio 27.2 (6-22); Bilirubin Total 0.5 mg/dL (0.2-1.3); Blood Urea Nitrogen 22 mg/dL (7-17); C-Reactive Protein Quant 0.9 mg/dL (<1.0); Calcium 10.5 mg/dL (8.4-10.2); Carbon Dioxide 26 mmol/L (22-32); Chloride 103 mmol/L (98-107); Creatine Kinase 52 U/L (30-135); Estimated Glomerular Filt Rate > 60.0 mL/min (>60); Globulin 3.4 g/dL (1.7-4.1); Glucose 124 mg/dL (80-110); HEMOLYSIS 23 (0-50); Magnesium 1.9 mg/dL (1.6-2.3); Potassium 4.2 mmol/L (3.4-5.1); Sodium 139 mmol/L (137-145); Total Protein 8.1 g/dL (6.3-8.2)
[2020-09-27 19:38] LABS: NT-proBNP (BNP-Adult 18+) 79 pg/mL (<125); Troponin I < 0.012 ng/mL (0.01-0.034)
[2020-09-27 19:38] LABS: COVID19 -Nasal RAPID Negative (Negative)
[2020-09-27 19:39] LABS: D Dimer < 200 ng/mL (<230)
[2020-09-27] MEDS: ALBUTEROL/IPRATROPIUM 3 ML AMPUL INH (19:50)
[2020-09-27] MEDS: ALBUTEROL 2.5 MG/3 ML NEB (ADULT) 10 MG INH (19:55)
--- NOTE | 2020-09-27 20:45 | PC.NURSE ---
Ambulated with steady gait
== END 2020-09-27 21:44 | disposition home or self-care (01) ==
PROVIDERS: Emergency Provider Emergency Medicine; Family Provider Internal Medicine Critical Care Medicine; PCP Internal Medicine
DX: J44.1 Chronic obstructive pulmonary disease with (acute) exacerbation (principal); R50.9 Fever, unspecified; R05 Cough; Z20.822 Contact with and (suspected) exposure to COVID-19
CPT/HCPCS: 36415; 36600; 71045; 80053; 81003; 82550; 82805; 83605; 83735; 83880; 84484; 85025; 85379; 86140; 87040; 87635; 93005; 94150; 94640; 96361; 96374; 99284; C9803; J2930; J3475; J7613

== ENCOUNTER → 2020-11-16 10:53 | Outpatient (CLI) | payer OTHER, SELFPAY ==
--- NOTE | 2020-11-16 | DI.US.S_ITS ---
PROCEDURE: US THYROID INDICATIONS: NONTOXIC MULTINODULAR GOITER TECHNIQUE: Real-time scanning was performed of the thyroid gland, with image documentation. COMPARISON: [facility], US, US THYROID, 05/02/2018, 13:42. FINDINGS: Right: Thyroid lobe measures 4.9 x 2.2 x 1.6 cm, and is homogeneous in echotexture. Left: Thyroid lobe measures 4.9 x 1.3 x 1.1 cm, and is homogenous in echotexture. Isthmus: 2.6 mm thick. Nodule number: 1 Location: Upper to midpole of right thyroid lobe Size: 2.3 x 1.9 x 1.3 cm. Composition: Solid Echogenicity: Isoechoic Shape: Wider than tall Margins: Smooth Echogenic foci: Punctate Total points: 6 ACR TI-RADS category: Moderately suspicious. Nodule number: 2 Location: Upper pole of left thyroid lobe Size: 0.7 x 0.6 x 0.4 cm. Composition: Solid Echogenicity: Hypoechoic Shape: Wider than tall Margins: Smooth Echogenic foci: None Total points: 4 ACR TI-RADS category: Moderately suspicious. IMPRESSION: Stable size and appearance of patient's known bilateral thyroid nodules. No new thyroid nodule is seen. Continued sonographic surveillance is recommended. ACR TI-RADS definitions and recommendations: TI-RADS 1 (benign): 0 points. FNA not needed. TI-RADS 2 (not suspicious): 2 points. FNA not needed. TI-RADS 3 (mildly suspicious): 3 points. * FNA if 2.5 cm or larger, follow up if 1.5 cm or larger (at 1, 3, and 5 years). TI-RADS 4 (moderately suspicious): 4-6 points. * FNA if 1.5 cm or larger, follow up if 1 cm or larger (at 1, 2, 3, and 5 years). TI-RADS 5 (highly suspicious): 7 points or more. * FNA if 1 cm or larger, follow up if 0.5 cm or larger (every year for 5 years). Dictated by: Kenneth Rhoades M.D. on 11/16/2020 at 15:50 Approved by: Kenneth Rhoades M.D. on 11/16/2020 at 15:53
[2020-11-16 13:08] LABS: Free T4, Direct Thyroxine 0.81 ng/dL (0.78-2.19)
[2020-11-16 13:22] LABS: Thyroid Stimulating Hormone 1.08 uIU/mL (0.47-4.68)
== END ==
PROVIDERS: Family Provider Internal Medicine Critical Care Medicine; PCP Internal Medicine; Referring Provider Internal Medicine Endocrinology, Diabetes & Metabolism; Visit Provider Internal Medicine Endocrinology, Diabetes & Metabolism
DX: E04.2 Nontoxic multinodular goiter (principal)
CPT/HCPCS: 36415; 76536; 84439; 84443

== ENCOUNTER → 2021-10-11 11:09 | Outpatient (CLI) | payer OTHER, SELFPAY ==
--- NOTE | 2021-10-11 | DI.RAD.S_ITS ---
PROCEDURE: XR KNEE RT 1TO2V INDICATIONS: RIGHT KNEE PAIN TECHNIQUE: 2 views of the knee were acquired. COMPARISON: [facility], , KNEE MIN 4VW (RT), 06/08/2013, 15:04. FINDINGS: Bones: No fractures or dislocations. No suspicious bony lesions. Mild narrowing of the medial femoral tibial joint. Soft tissues: Trace joint effusion. No suspicious soft tissue calcifications. IMPRESSION: Trace joint effusion and mild medial femorotibial joint degeneration. Dictated by: Benton Alvarez RR Interpreted: Humberto Diallo MD on 10/11/2021 at 13:05 Transcribed by: FRANKLIN on 10/11/2021 at 13:07 Approved by: Humberto Diallo M.D. on 10/11/2021 at 15:13
== END ==
PROVIDERS: Family Provider Internal Medicine Critical Care Medicine; PCP Internal Medicine; Referring Provider Internal Medicine; Visit Provider Internal Medicine
DX: M17.11 Unilateral primary osteoarthritis, right knee (principal); M25.561 Pain in right knee
CPT/HCPCS: 73560

== ENCOUNTER → 2021-12-06 10:23 | Outpatient (CLI) | payer OTHER, SELFPAY ==
--- NOTE | 2021-12-06 10:26 | DI.MRI.S_ITS ---
PROCEDURE: MR KNEE RT WO CON INDICATIONS: PAIN RIGHT KNEE AGE RELATED OSTEOPOROSI TECHNIQUE: Noncontrast sagittal PD fast spin echo and T2 fast spin echo with fat saturation, sagittal 3-D FLASH with fat saturation; coronal T1 spin echo and PD fast spin echo with fat saturation, and axial PD fast spin echo with fat saturation through the knee. COMPARISON: None. FINDINGS: Image quality: Excellent. Menisci: Horizontal oblique tear involving posterior horn of medial meniscus is seen extending to superior articulating surface. Peripheral displacement of medial meniscus bowing medial collateral ligament is also seen. Lateral meniscus is intact. The meniscal root ligaments appear intact. Cruciate ligaments: The anterior and posterior cruciate ligaments appear intact. Medial structures: Low-grade medial collateral ligament sprain is seen. The posterior oblique ligament, semimembranosus tendon insertions, oblique popliteal ligament, and meniscocapsular junction appear intact. Visualized portions of the pes anserinus tendons appear normal. No abnormal bursal fluid. Lateral structures: The lateral collateral ligament, long and short heads of the biceps femoris tendon appear intact. The popliteus tendon appears normal; the popliteofibular ligament appears intact. The posterosuperior and anteroinferior popliteomeniscal fascicles appear intact. The arcuate and fabellofibular ligaments appear intact, on either side of the lateral inferior geniculate artery. Iliotibial band appears normal. Anterior structures: The quadriceps and patellar tendons appear intact. Patellar alignment is normal. No femoral trochlear dysplasia or ventral trochlear prominence. No edema in the infrapatellar fat pad. Bones and cartilage: Mild to moderate medial femoral tibial compartment osteoarthritis and chondromalacia is seen with joint space narrowing, subchondral sclerosis and edema as well as medial marginal osteophyte formation. Low-grade chondromalacia in lateral femoral tibial compartment is seen. Low to moderate grade chondromalacia involving medial patellofemoral compartment is also noted. No fracture or dislocation. Joint space: There is small to moderate amount of joint fluid. No Casey's cyst. Normal appearing synovial plicae are incidentally noted. IMPRESSION: 1. Oblique tear involving posterior horn of medial meniscus extending to superior articulating surface. No focal medial meniscal tear. 2. Cruciate ligaments are intact. Low-grade MCL sprain. 3. 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 Low-grade chondromalacia in patellofemoral compartment and lateral femoral tibial compartment. No fracture or dislocation. Small to moderate joint effusion. Dictated by: Kenneth Rhoades M.D. on 12/06/2021 at 11:41 Approved by: Kenneth Rhoades M.D. on 12/06/2021 at 11:44
== END ==
PROVIDERS: Family Provider Internal Medicine Critical Care Medicine; PCP Internal Medicine; Referring Provider Internal Medicine; Visit Provider Internal Medicine
DX: M81.0 Age-related osteoporosis without current pathological fracture (principal); M25.561 Pain in right knee; S83.241A Other tear of medial meniscus, current injury, right knee, initial encounter; S83.411A Sprain of medial collateral ligament of right knee, initial encounter; M17.11 Unilateral primary osteoarthritis, right knee; M94.261 Chondromalacia, right knee; M25.461 Effusion, right knee; M85.89 Other specified disorders of bone density and structure, multiple sites
CPT/HCPCS: 73721; 77080

== ENCOUNTER → 2022-05-24 10:50 | Outpatient (CLI) | payer OTHER, SELFPAY ==
--- NOTE | 2022-05-24 | DI.MG.S_ITS ---
BILATERAL DIGITAL SCREENING MAMMOGRAM 3D/2D WITH CAD: 05/24/2022 CLINICAL: Routine screening. Comparison is made to exams dated: 04/09/2020 mammogram, 04/10/2018 mammogram, and 03/15/2016 mammogram - [facility]. There are scattered areas of fibroglandular density in both breasts (category b / 25%-50% glandular tissue). Current study was also evaluated with a Computer Aided Detection (CAD) system. There is a benign calcification in the right breast. There is a mole marker on the left breast. No significant masses, calcifications, or other findings are seen in either breast. There has been no significant interval change. IMPRESSION: BENIGN There is no mammographic evidence of malignancy. A 1 year screening mammogram is recommended. Based on the Tyrer Cuzick model (a risk assessment model) the patient's lifetime risk is 3.9% and her 10 year risk is 2.3%. According to the ACR, ACS, and NCCN guidelines, an annual breast MRI exam along with mammogram is recommended if the patient's lifetime risk is 20% or greater. This exam was interpreted at Station ID: [id number]. NOTE: For mammograms, a report in lay terms will be sent to the patient. Approximately 15% of breast malignancies will not be visualized mammographically. In the management of a palpable breast mass, a negative mammogram must not discourage biopsy of a clinically suspicious lesion. Electronically Signed By: Fuad Blackwell M.D., jr/oliver:05/24/2022 12:59:10 letter sent: Normal Exam ACR BI-RADS Category 2: Benign Finding(s) [id number]
== END ==
PROVIDERS: Family Provider Internal Medicine Critical Care Medicine; PCP Internal Medicine; Referring Provider Internal Medicine; Visit Provider Internal Medicine
DX: Z12.31 Encounter for screening mammogram for malignant neoplasm of breast (principal)
CPT/HCPCS: 77063; 77067

== ENCOUNTER → 2023-09-16 11:47 | Outpatient (CLI) | payer OTHER, SELFPAY ==
--- NOTE | 2023-09-16 11:49 | DI.US.S_ITS ---
PROCEDURE: US THYROID INDICATIONS: Nontoxic multinodular goiter TECHNIQUE: Real-time scanning was performed of the thyroid gland, with image documentation. COMPARISON: [facility], US, THYROID, 08/09/2016, 11:24. [facility], US, US THYROID, 05/02/2018, 13:42. [facility], US, US THYROID, 11/16/2020, 11:46. FINDINGS: Thyroid: Right lobe measures 4.4 x 2.2 x 2.0 cm. Left lobe measures 3.6 x 1.2 x 1.2 cm. Isthmus is 4 cm thick. Echotexture is homogeneous. Nodule number: 1 Location: Right superior Size: 2.3 x 1.3 x 1.6 cm compared to 2.3 x 1.9 x 1.3 cm. Composition: Solid Echogenicity: Hypoechoic Shape: wider than tall. Margins: Smooth Echogenic foci: Punctate Total points: 7 ACR TI-RADS category: 5 A 2nd focus is present in the left thyroid gland, measuring 8 mm, unchanged compared to prior exam. IMPRESSION: Lesion 1 is considered category 5. It is stable compared to 2017. No additional follow-up is recommended. Subcentimeter focus does not meet criteria for continued follow-up. ACR TI-RADS definitions and recommendations: TI-RADS 1 (benign): 0 points. FNA not needed. TI-RADS 2 (not suspicious): 2 points. FNA not needed. TI-RADS 3 (mildly suspicious): 3 points. * FNA if 2.5 cm or larger, follow up if 1.5 cm or larger (at 1, 3, and 5 years). TI-RADS 4 (moderately suspicious): 4-6 points. * FNA if 1.5 cm or larger, follow up if 1 cm or larger (at 1, 2, 3, and 5 years). TI-RADS 5 (highly suspicious): 7 points or more. * FNA if 1 cm or larger, follow up if 0.5 cm or larger (every year for 5 years). Dictated by: Prema Hammond M.D. on 09/16/2023 at 17:29 Approved by: Prema Hammond M.D. on 09/16/2023 at 17:31
== END ==
PROVIDERS: Family Provider Internal Medicine Critical Care Medicine; PCP Internal Medicine; Referring Provider Internal Medicine; Visit Provider Internal Medicine
DX: E04.1 Nontoxic single thyroid nodule (principal)
CPT/HCPCS: 76536

== ENCOUNTER → 2024-02-25 11:45 | Outpatient (CLI) | payer OTHER, SELFPAY ==
--- NOTE | 2024-02-25 | DI.RAD.S_ITS ---
PROCEDURE: XR CHEST 2V INDICATIONS: Nicotine dependence, cigarettes, uncomplicated TECHNIQUE: 2 views of the chest were acquired. COMPARISON: [facility], , XR CHEST 1V, 09/27/2020, 19:51. FINDINGS: Mild calcifications of the aortic arch mildly progressed. Osteopenia and mild to moderate degenerative changes of the thoracic spine and shoulders unchanged. Mild levoscoliosis upper thoracic spine mildly progressed. No pneumothorax, no pleural effusion, no focal consolidation, no radiographic evidence of lung mass or nodule. Cardiopericardial silhouette and pulmonary vasculature within normal limits. IMPRESSION: Chronic findings as discussed above. If indicated CT chest could be performed for further evaluation. Dictated by: Yonny Pollock M.D. on 02/25/2024 at 13:47 Approved by: Yonny Pollock M.D. on 02/25/2024 at 13:52
== END ==
PROVIDERS: Family Provider Internal Medicine Critical Care Medicine; PCP Internal Medicine; Referring Provider Internal Medicine; Visit Provider Internal Medicine
DX: J44.1 Chronic obstructive pulmonary disease with (acute) exacerbation (principal); M47.814 Spondylosis without myelopathy or radiculopathy, thoracic region; M41.9 Scoliosis, unspecified; I70.0 Atherosclerosis of aorta
CPT/HCPCS: 71046

== ENCOUNTER 2024-04-29 11:47 | Day surgery (SDC) | payer OTHER, SELFPAY ==
[2024-04-29 13:16] VITALS: BP 134/83; PULSE 106; RESP 22; TEMP 36.1; O2SAT 92
[2024-04-29 13:27] VITALS: PULSE 92
--- NOTE | 2024-04-29 13:38 | PM.PREOP ---
Pre-operative Note COVID-19 COVID-19 status: Not tested Interval Note History & Physical reviewed/Exam performed by Physician: Yes Changes to H&P: No ASA Class (for procedural sedation): II
[2024-04-29 14:07] VITALS: BP 114/73; PULSE 79; RESP 14; TEMP 36.6; O2SAT 96
--- NOTE | 2024-04-29 14:11 | PM.OP.COLON ---
Operative Date/Time/Diagnoses Date of procedure: 04/29/24 Time of procedure: 14:11 Pre-op diagnosis: Rectal bleeding Post-op diagnosis: same Procedure & Clinicians Study performed: Colonoscopy Same procedure as scheduled: Yes Surgeon: Mat Roberts Procedure Notes Procedure in detail: Surgeon: Mat Roberts MD Anesthesia: Estephanie Garza CRNA Procedure: The patient was brought to the endoscopy suite, placed in left lateral decubitus position. The patient was connected to monitoring devices. A time-out was performed. Sedation was administered. Once the patient was adequately sedated, a digital rectal exam was performed and was normal. The scope was then inserted and advanced to the cecum where the appendiceal orifice was identified and photographed. The scope was then slowly withdrawn over greater than 6 minutes. The mucosa was thoroughly inspected. Sigmoid colon diverticulosis was noted. The scope was retroflexed in the rectum. No other abnormalities were noted. The scope was straightened and removed. The patient was awakened and brought to recovery. Scope withdrawal time: 7 minutes Sedation time: 14 minute EBL: 0 Findings: Diverticulosis Post-procedure Disposition: PACU
[2024-04-29 14:12] VITALS: BP 122/86; PULSE 90; RESP 20; O2SAT 95
[2024-04-29 14:13] VITALS: BP 134/79; PULSE 90; RESP 20; TEMP 37; O2SAT 95
[2024-04-29 14:30] VITALS: BP 154/95; PULSE 88; RESP 14; TEMP 36.6; O2SAT 95
== END 2024-04-29 14:35 | disposition home or self-care (01) ==
PROVIDERS: Family Provider Internal Medicine Critical Care Medicine; PCP Internal Medicine; Referring Provider Surgery; Visit Provider Surgery
PROC: 0DJD8ZZ Inspection of Lower Intestinal Tract, Via Natural or Artificial Opening Endoscopic (ICD-10-PCS; CPT 45378; principal; 2024-04-29 13:15)
DX: K62.5 Hemorrhage of anus and rectum (principal); K57.30 Diverticulosis of large intestine without perforation or abscess without bleeding
CPT/HCPCS: 45378; J2704